=== PATIENT | female | born 1985 | race Caucasian/White ===

== ENCOUNTER 2024-09-09 11:02 | Outpatient (CLI) | payer BC, SELFPAY ==
[2024-09-09 11:45] LABS: Basophils Percent Auto 0.3 % (0.2-1.2); Eosinophils Percent Auto 0.1 % (0-4.4); Hematocrit 43.1 % (37.0-47.0); Hemoglobin 14.4 g/dL (12.0-15.0); Immature Granulocyte Absolute 0.05 K/mm3 (0.00-0.031); Immature Granulocyte Percent A 0.3 % (0-0.5); Lymphocytes Absolute Auto 1.09 K/mm3 (0.9-3.2); Lymphocytes Percent Auto 7.6 % (18.3-44.2); Mean Corpuscular HGB Conc 33.4 g/dl (32-36); Mean Corpuscular Volume 83.7 fl (80-100); Mean Platelet Volume 9.3 fl (7.4-10.4); Monocytes Absolute Auto 0.4 K/mm3 (0.1-0.6); Monocytes Percent Auto 2.7 % (2.6-8.5); Neutrophils Absolute Auto 12.8 K/mm3 (1.3-6.7); Platelet Count Result 309 k/mm3 (150-375); Red Blood Count 5.15 M/mm3 (4.2-5.4); Red Cell Distribution Width 12.1 % (11.5-14.5); White Blood Count 14.3 K/mm3 (4.5-10.0)
[2024-09-09 11:56] LABS: Alanine Aminotransferase 13 U/L (6-35); Albumin Level 4.9 g/dL (3.5-5.1); Alkaline Phosphatase 66 U/L (38-126); Anion Gap 13 mmol/L (4-12); Aspartate Amino Transferase 25 U/L (14-36); Bilirubin,Total 1.1 mg/dL (0.2-1.3); Blood Urea Nitrogen 7 mg/dL (7-17); Carbon Dioxide 23 mmol/L (22-30); Chloride 103 mmol/L (98-107); Estimated Glomerular Filt Rate > 60; Glucose 103 mg/dL (65-110); Potassium 3.1 mmol/L (3.4-5.0); Sodium 139 mmol/L (137-145)
== END 2024-09-09 11:03 | disposition home or self-care (01) ==
LOC: ANHLAB 11:04
PROVIDERS: PCP Family Medicine; Visit Provider Physician Assistant
DX: R10.9 Unspecified abdominal pain (principal); R11.0 Nausea
CPT/HCPCS: 36415; 80053; 85025

== ENCOUNTER 2024-09-09 13:04 | Outpatient (CLI) | payer BC, SELFPAY ==
--- NOTE | ~2024-09-09 | CT_ITS ---
EXAMINATION: CT abdomen pelvis w con DATE: 09/09/2024 13:25 INDICATION: Right lower quadrant abdominal pain, nausea and vomiting. Leukocytosis. TECHNIQUE: Computed tomography (CT) of the abdomen and pelvis was performed with 100 mL Omnipaque-350 intravenous contrast. Automated exposure control and iterative reconstruction technique were employe d. The dose-length product was 817.58 mGy-cm. COMPARISON: None FINDINGS: Lung bases are clear. Heart size normal. No pericardial or pleural effusion. Small sliding-type hiata l hernia. Small region of focal hepatic steatosis along the ligamentum teres. Gallbladder, spleen, pa ncreas, bilateral adrenal glands and right kidney are normal. There is dilation of the fluid-filled a ppendix which measures up to 1.5 cm maximal diameter with thickened edematous wall measuring 3 to 4 m m in thickness. Despite the absence of significant surrounding from trace stranding to study most con sistent with acute appendicitis. Remainder of the bowels are normal. And 6 similar rim-enhancing [place] us luteum cyst in the right ovary. The decompressed bladder, anteverted uterus and left adnexa are un remarkable. Small fat-containing umbilical hernia. Minimal amount of likely reactive or physiologic f ree fluid in the cul-de-sac. No pathologically enlarged abdominal or pelvic lymphadenopathy. Chronic appearing mild likely physiologic anterior wedging at T12. Mild osteitis pubis. IMPRESSION: 1. Dilated appendix with edematous wall thickening suspicious for acute appendicitis. Dr. Hill di scussed these findings with Dr. Keisha Garcia at 1:45 PM. Reviewed, dictated and finalized at location A. IMPRESSION: 1. Dilated appendix with edematous wall thickening suspicious for acute appendi citis. Dr. Hill discussed these findings with Dr. Keisha Garcia at 1:45 PM .
== END 2024-09-09 13:05 | disposition home or self-care (01) ==
PROVIDERS: PCP Family Medicine; Visit Provider Physician Assistant
DX: K38.0 Hyperplasia of appendix (principal); D72.829 Elevated white blood cell count, unspecified
CPT/HCPCS: 36415; 74177; 80053; 85025; Q9967

== ENCOUNTER 2024-09-09 13:50 | Day surgery (SDC) | payer BC, SELFPAY ==
[2024-09-09] VITALS (13 sets, daily range): BP systolic 119–151; BP diastolic 72–99; PULSE 72–118; RESP 12–20; TEMP 36.4–36.7; O2SAT 98–100
--- NOTE | 2024-09-09 14:05 | ED.GENADULT ---
HPI - General Adult General Chief complaint: Abdominal Pain Stated complaint: appy Time Seen by Provider: 09/09/24 13:53 History of Present Illness HPI narrative: 39-year-old female presents emergency department for evaluation for epigastric and right lower quadrant pain. Patient reports the pain started last night as epigastric pain but continued to worsen throughout the evening. Patient did have follow-up today with her primary care physician due to the persistent pain. During her initial examination patient did have some significant right lower quadrant tenderness so an outpatient CT scan was ordered. Outpatient CT scan was concerning for acute appendicitis and patient was referred to the emergency department. At time of evaluation patient is complaining of diffuse abdominal pain and does have some right lower quadrant tenderness. Patient has not had anything to drink since 11:30 today. She denies any prior abdominal surgical history. Related Data Home Medications Medication Instructions Recorded Confirmed peg 400-propylene glycol (PF) 0.4 1 drp EACH EYE DAILY PRN 03/28/24 09/09/24 %-0.3 % eye drops in a dropperette (Systane (PF)) Allergies Allergy/AdvReac Type Severity Reaction Status Date / Time No Known Allergies Allergy Verified 09/09/24 15:50 Review of Systems Review of Systems: All systems reviewed & are unremarkable except as noted in HPI and below PMFSH Past Medical History Medical History Chronic headaches Enlarged thyroid SOBIA (generalized anxiety disorder) Seasonal allergies Surgical History Surgical History No pertinent past surgical history Family History Family History Father Hypertension Grandparent Lung cancer Social History Social History Social History: Smoking status: Never smoker Second hand tobacco smoke exposure: No Alcohol intake: current Alcohol use details: Pt drinks alcohol once a week. 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 HEAD: normocephalic, atraumatic. EYES: PERRLA/EOMI, conjunctivae clear. NOSE: Normal no drainage EARS:TMS clear with good light reflex. THROAT: Pharynx clear, no exudate. NECK: Supple. No adenopathy, no masses. RESPIRATORY: Airway patent, respirations nonlabored. Clear to auscultation bilaterally, no rales, rhonchi, wheezing. CARDIOVASCULAR: Regular rate and rhythm without murmurs rubs or gallops. ABDOMINAL: Epigastric and right lower quadrant tenderness to palpation MUSCULOSKELETAL: Moves all extremities. Strength/ROM intact, No edema, No calf tenderness. NEURO: Alert. Cranial nerves II through XII intact. Good gait. Good coordination SKIN: Warm, dry. Normal Color Course Vital Signs Vital signs: Vital Signs Temperature 97.6 F 09/09/24 13:53 Pulse Rate 110 H 09/09/24 13:53 Respiratory Rate 20 09/09/24 13:53 Blood Pressure 141/99 H 09/09/24 13:53 Pulse Oximetry 99 09/09/24 13:53 Oxygen Delivery Room Air 09/09/24 13:53 Temperature 98.0 F 09/09/24 17:30 Pulse R
[2024-09-09] MEDS: ONDANSETRON INJ 4 MG/2 ML VIAL IV PUSH ×2 (14:24→18:20)
[2024-09-09] MEDS: SODIUM CHLORIDE 0.9% IV 1,000 ML 999 ML IV CONT (14:24)
[2024-09-09] MEDS: HYDROmorphone HCL INJ (*CRX) 1 MG/ML SYR 0.5 MG IV PUSH (14:24)
[2024-09-09 14:26] LABS: BEDSIDEPREGUCG Negative (Negative)
[2024-09-09 14:46] LABS: Add Urine Microscopic? YES; Appearance Urine Clear (Clear); Bacteria Urine None Seen /hpf; Bilirubin Urine Negative (Negative); Blood Urine Negative (Negative); Color Urine Yellow (Yellow); Glucose Urine UA Negative (Negative); Ketones Urine 1+ mg/dL (Negative); Leukocyte Esterase Ur Negative LEU/UL (Negative); Nitrate Urine Negative (Negative); Non Pathogenic Casts 0-2; Protein Urine Trace mg/dL (Negative); RBC Urine 0-2 /hpf (0-2); Specific Grav Ur > 1.045 (1.001-1.035); Squamous Epithelial Cell Urine None Seen /hpf (Few); Urobilinogen Urine 0.2 mg/dL (<2.0); WBC Urine 0-5 /hpf (0-3); pH Urine 6.5 (5.0-9.0)
[2024-09-09 14:58] LABS: Hematocrit 40.4 % (37.0-47.0); Hemoglobin 14.3 g/dL (12.0-15.0); Mean Corpuscular HGB Conc 35.4 g/dl (32-36); Mean Corpuscular Hemoglobin 29.1 pg (26-34); Mean Corpuscular Volume 82.3 fl (80-100); Mean Platelet Volume 9.5 fl (7.4-10.4); Platelet Count Result 316 k/mm3 (150-375); Red Blood Count 4.91 M/mm3 (4.2-5.4); Red Cell Distribution Width 12.1 % (11.5-14.5); White Blood Count 17.4 K/mm3 (4.5-10.0)
[2024-09-09] MEDS: PIPERACILLN/TAZ 3.375GM/NS50ML 3.375 GM/50 ML BAG IVPB (15:06)
[2024-09-09 15:08] LABS: Prothrombin Time 13.7 Seconds (11.1-14.7)
[2024-09-09 15:09] LABS: Partial Thromboplastin Time 32.3 Seconds (22.3-36.8)
[2024-09-09 15:12] LABS: Lactic Acid Reflex 0.9 mmol/L (0.7-2.0)
--- NOTE | 2024-09-09 15:31 | PM.IMHP ---
H&P: HPI History of Present Illness Date/Time: 09/09/24 15:31 Chief Complaint: Abdominal pain Narrative: This is a 39-year-old female who was seen as an outpatient by her PCP today for upper abdominal pain. Her pain started around 8:00 p.m. last night after eating chili. She has a history of GERD and initially thought this was related to indigestion. Through the night, her pain progressed and she was unable to sleep. She had a bowel movement, which did not alleviate any of her pain. She also tried famotidine without improvement. She reports associated nausea and vomiting x2. Her PCP ordered labs, which showed leukocytosis and prompted CT scan of the abdomen and pelvis. CT scan showed a dilated appendix with edematous wall thickening suspicious for acute appendicitis. She was then directed to the ED for evaluation. Review of Systems Review of Systems: All systems reviewed & are unremarkable except as noted in HPI and below PMFSH Past Medical History Medical History (Updated 09/09/24 @ 15:39 by ANTWON Rosario) Chronic headaches Enlarged thyroid SOBIA (generalized anxiety disorder) Seasonal allergies Surgical History Surgical History No pertinent past surgical history Family History Family History Father Hypertension Grandparent Lung cancer Social History Social History Social History: Smoking status: Never smoker Second hand tobacco smoke exposure: No Alcohol intake: current Alcohol use details: Pt drinks alcohol once a week. 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 Gender identity (if verbalized by the patient): Female Sexual Orientation (if Verbalized by the Patient): Straight or Heterosexual Meds Home Medications and Allergies Home Medications Medication Instructions Recorded Confirmed Type azelastine 137 mcg (0.1 %) nasal See Rx Instructions .Route 02/08/24 09/09/24 Rx spray .COMPLEX #90 mL buspirone 5 mg tablet 5 mg PO TID #90 tabs 02/08/24 09/09/24 Rx peg 400-propylene glycol (PF) 0.4 1 drp EACH EYE DAILY PRN 03/28/24 09/09/24 History %-0.3 % eye drops in a dropperette (Systane (PF)) fluticasone propionate 50 See Rx Instructions .Route 07/21/24 09/09/24 Rx mcg/actuation nasal .COMPLEX #48 grams spray,suspension propranolol 20 mg tablet See Rx Instructions .Route 08/25/24 09/09/24 Rx .COMPLEX #180 tabs omeprazole 40 mg capsule,delayed 40 mg PO DAILY 6 weeks #42 caps 09/09/24 09/09/24 Rx release Allergies Allergy/AdvReac Type Severity Reaction Status Date / Time No Known Allergies Allergy Verified 09/09/24 13:58 Vital Signs Vital Signs - 24 hr 09/09/24 13:53 09/09/24 14:25 Temperature 97.6 F Pulse Rate 110 H 105 H Respiratory Rate 20 15 Blood Pressure 141/99 H Pulse Oximetry 99 100 Oxygen Delivery Room Air Exam Const: General: comfortable and no acute distress Nutritional Appearance: average body habitus Orientation/consciousness: patient oriented x3 HENMT: Head: normocephalic and atraumatic Ears: hearing grossly normal bilaterally Mouth: Yes moist mucous membranes Eyes: General: appearance normal, both eyes and all related structures Pupils: Equal, round and reactive pupils present Neck: Neck: normal visual inspection and full ROM Resp: Effort & I
[2024-09-09 15:40] LABS: Band Neutrophils Percent 1 % (0-6); Lymphocytes Absolute Manual 0.69 K/mm3 (1.1-4.5); Monocytes Absolute Manual 0.52 K/mm3 (0.1-0.90); Monocytes Percent Manual 3 % (3-9); Neutrophils Absolute Manual 16.18 K/mm3 (1.7-7.2); Neutrophils Percent Manual 92 % (46-73); Platelet Estimate Adequate (Adequate); Schistocytes None Seen; Total Cells Counted 100
--- NOTE | 2024-09-09 15:57 | WPDANESEPPF ---
Anes - Initial Pre Proc Eval Procedure: Operation Date: 09/09/24 17:00 Proposed Procedures p Laparoscopic Appendectomy - Braxton Pichardo DO Date/Time: 09/09/24 15:57 Surgeon: Braxton Pichardo DO Pre Op Diagnosis: appy Patient Data Age: 39 Gender: F Height: 1.7 m Weight: 91.8 kg Last Vital Signs Temp 36.7 C 09/09/24 15:51 Pulse 103 H 09/09/24 15:51 Resp 18 09/09/24 15:51 BP 151/94 H 09/09/24 15:51 Pulse Ox 99 09/09/24 15:51 O2 Del Method Room Air 09/09/24 15:51 Allergies Allergy/AdvReac Type Severity Reaction Status Date / Time No Known Allergies Allergy Verified 09/09/24 15:50 Home Medications Medication Instructions Recorded Confirmed Type azelastine 137 mcg (0.1 %) nasal See Rx Instructions .Route 02/08/24 09/09/24 Rx spray .COMPLEX #90 mL buspirone 5 mg tablet 5 mg PO TID #90 tabs 02/08/24 09/09/24 Rx peg 400-propylene glycol (PF) 0.4 1 drp EACH EYE DAILY PRN 03/28/24 09/09/24 History %-0.3 % eye drops in a dropperette (Systane (PF)) fluticasone propionate 50 See Rx Instructions .Route 07/21/24 09/09/24 Rx mcg/actuation nasal .COMPLEX #48 grams spray,suspension propranolol 20 mg tablet See Rx Instructions .Route 08/25/24 09/09/24 Rx .COMPLEX #180 tabs omeprazole 40 mg capsule,delayed 40 mg PO DAILY 6 weeks #42 caps 09/09/24 09/09/24 Rx release Laboratory Tests 09/09/24 09/09/24 09/09/24 14:25 14:26 14:52 WBC 17.4 H K/mm3 (4.5-10.0) RBC 4.91 M/mm3 (4.2-5.4) Hgb 14.3 g/dL (12.0-15.0) Hct 40.4 % (37.0-47.0) MCV 82.3 fl (80-100) MCH 29.1 pg (26-34) MCHC 35.4 g/dl (32-36) RDW 12.1 % (11.5-14.5) Plt Count 316 k/mm3 (150-375) MPV 9.5 fl (7.4-10.4) Immature Gran % (Auto) Not Reportable Neut % (Auto) Not Reportable Lymph % (Auto) Not Reportable [place] % (Auto) Not Reportable Eos % (Auto) Not Reportable Baso % (Auto) Not Reportable Lymph # (Auto) Not Reportable [place] # (Auto) Not Reportable Eos # (Auto) Not Reportable Baso # (Auto) Not Reportable Abs Immat Gran (auto) Not Reportable Absolute Neuts (auto) Not Reportable Absolute Nucleated RBC Not Reportable Total Counted 100 Neutrophils % (Manual) 92 H % (46-73) Band Neutrophils % 1 % (0-6) Lymphocytes % (Manual) 4.0 L % (18-44) Monocytes % (Manual) 3 % (3-9) Nucleated RBC % Not Reportable Abs Neuts (Manual) 16.18 H K/mm3 (1.7-7.2) Abs Lymphs (Manual) 0.69 L K/mm3 (1.1-4.5) Abs Monocytes (Manual) 0.52 K/mm3 (0.1-0.90) Platelet Estimate Adequate (Adequate) Schistocytes None seen PT 13.7 Seconds (11.1-14.7) INR 1.0 APTT 32.3 Seconds (22.3-36.8) Sodium Pending Potassium Pending Chloride Pending Carbon Dioxide Pending Anion Gap Pending BUN Pending Creatinine Pending Estim Creat Clear Calc Pending Estimated GFR Pending Glucose Pending Lactic Acid 0.9 mmol/L (0.7-2.0) Calcium Pending Total Bilirubin Pending AST Pending ALT Pending Alkaline Phosphatase Pending Total Protein Pending Albumin Pending Lipase Pending Urine Color Yellow (Yellow) Urine Appearance Clear (Clear) Urine pH 6.5 (5.0-9.0) Ur Specific [place] > 1.045 H (1.001-1.035) Urine Protein Trace mg/dL (Negative) Urine Glucose (UA) Negative mg/dL (Negative) Urine Ketones 1+ H mg/dL (Negative
[2024-09-09 15:59] LABS: Alanine Aminotransferase 13 U/L (6-35); Albumin Level 4.9 g/dL (3.5-5.1); Alkaline Phosphatase 68 U/L (38-126); Anion Gap 14 mmol/L (4-12); Aspartate Amino Transferase 22 U/L (14-36); Bilirubin,Total 1.3 mg/dL (0.2-1.3); Blood Urea Nitrogen 7 mg/dL (7-17); Calcium 9.1 mg/dL (8.4-10.2); Carbon Dioxide 20 mmol/L (22-30); Chloride 104 mmol/L (98-107); Estimated CRCL calculation 148 ml/min; Estimated Glomerular Filt Rate > 60; Glucose 101 mg/dL (65-110); Lipase 41 U/L (23-300); Potassium 3.1 mmol/L (3.4-5.0); Sodium 138 mmol/L (137-145)
[2024-09-09] MEDS: ACETAMINOPHEN 500 MG TABLET 1000 MG PO (16:00)
[2024-09-09] MEDS: KETOROLAC 15 MG/ML VIAL (*BKC) IV PUSH (16:01)
[2024-09-09] MEDS: LACTATED RINGERS 1,000 ML 30 ML IV CONT ×2 (16:18→17:30)
--- NOTE | 2024-09-09 16:28 | WPDHPUPDATE1 ---
History and Physical Update Update Date/Time: 09/09/24 16:28 History and Physical has been reviewed, including an updated exam of the patient. There are NO changes in the patient's condition. Risks, benefits, and alternatives have been discussed and questions answered. Patient agrees to proceed with procedure.
[2024-09-09] MEDS: BUPIVACAINE/EPINEPHRINE 0.5% 50 ML VIAL 30 ML INFILTRATE (17:03)
--- NOTE | 2024-09-09 17:25 | W.PM.PROC2 ---
Procedure Note - Detailed Date of Procedure 09/09/24 Pre-op Diagnosis Acute appendicitis, umbilical hernia Post-op Diagnosis Other (Acute appendicitis, hemorrhagic right ovarian cyst, 1 cm umbilical hernia) Procedure Performed 1. Laparoscopic appendectomy 2. Open 1 cm umbilical hernia repair Surgeon Braxton Pichardo DO Anesthesia General and Local (0.5% bupivacaine with epinephrine) Indications This is a 39-year-old woman who presented with periumbilical pain that started around 8:00 p.m. last night. She had never experienced pain like this in the past. She was seen by her PCP office today and was sent for labs and a CT. She was then sent to the emergency department after the CT results came back. Her CT showed evidence of acute appendicitis. She was also found to have 1 cm umbilical hernia. Discussions were made with the patient about treatment options and decision was made to proceed with laparoscopic appendectomy, possible open. Findings Laparoscopic appendectomy was performed. The patient had a 1 cm umbilical hernia and decision was made to place my initial port through this hernia defect. The appendix appeared dilated and indurated, but there was no evidence of perforation or abscess. The base of the appendix appeared healthy and viable. The appendix was removed and sent to the lab for pathology. When I 1st inspected the abdomen laparoscopically, there did appear to be some blood tinged fluid in the pelvis. Upon further inspection there appeared to be a hemorrhagic cyst in the right ovary. The edge of the cyst was cauterized to help with hemostasis. No other significant abnormalities were seen. Description of Procedure Procedure as well as risks, benefits, and alternatives were explained to the patient. The patient agreed to proceed. Written consent was obtained and placed in chart prior to procedure. The patient was brought back to surgical suite. She was placed supine on operating table. Time-out was done to confirm the patient and procedure. The patient was then intubated by the Anesthesia Department. Her abdomen was prepped and draped in sterile fashion using chlorhexidine prep. A 2 cm curvilinear incision was made just superior to the umbilicus using a 15 blade scalpel. Electrocautery was used for hemostasis and for dissection through the subcutaneous tissue. Hernia defect was identified and the hernia sac and preperitoneal fat was excised using electrocautery. Peritoneum was entered through the hernia defect. A 12 mm trocar was then inserted, and carbon dioxide insufflation was used to create a pneumoperitoneum. The camera was inserted and the abdomen was inspected. Some blood-tinged ascites was noted in the pelvis and along the right colic gutter. The patient was then placed in slight Trendelenburg position and rotated to the left. A 5 mm incision was made in the suprapubic region in midline and a 5 mm trocar was inserted under direct visualization. A 5 mm incision was made in the left lower quadrant and a 5 mm trocar was inserted under direct visualization. The right lower quadrant was carefully inspected. The cecum was identified and then this was traced back to the appendix. The appendix was identified and grasped at the mesoappendix and lifted anteriorly. Careful blunt dissection was carried out at the base of the appendix through the mesoappendix using a [place] grasper. An Endo-PRISCILLA 45 mm blue load stapler was then advanced across the base of the appendix and clamped and fired. A white reload was then clamped across the mesoappendix and fired. This freed up our appendix completely. It was then placed in an EndoCatch bag and removed through the umbilical port. The staple lines were then inspected. Hemostasis appeared adequate and the staple lines appeared secure. The area was then irrigated with sterile saline. The pelvis was then carefully inspected and irrigated with sterile saline as well and the remainder of the ab
[2024-09-09] MEDS: fentaNYL CITRATE INJ (*CRX) 100 MCG/2 ML VIAL 25 MCG IV PUSH ×3 (18:08→18:15)
[2024-09-09] MEDS: diphenhydrAMINE HCl INJ 50 MG/ML VIAL 25 MG IV PUSH (18:27)
[2024-09-09] MEDS: oxyCODONE HCL (*CRX) 5 MG TAB IR PO (19:23)
== END 2024-09-09 20:00 | disposition home or self-care (01) ==
LOC: ANHED 14:19 → ANHSURGERY 14:34
PROVIDERS: Emergency Provider Emergency Medicine; PCP Family Medicine; Visit Provider Surgery
PROC: 0DTJ4ZZ Resection of Appendix, Percutaneous Endoscopic Approach (ICD-10-PCS; CPT 44970; principal; 2024-09-09 17:00)
DX: K35.30 Acute appendicitis with localized peritonitis, without perforation or gangrene (principal); K42.9 Umbilical hernia without obstruction or gangrene; R18.8 Other ascites; N83.201 Unspecified ovarian cyst, right side; F41.9 Anxiety disorder, unspecified; R51.9 Headache, unspecified; E66.9 Obesity, unspecified; Z68.31 Body mass index [BMI] 31.0-31.9, adult; Z80.1 Family history of malignant neoplasm of trachea, bronchus and lung
CPT/HCPCS: 44970; 36415; 80053; 81001; 81025; 83605; 83690; 85025; 85610; 85730; 87040; 88304; 96365; 96375; 99285; A9270; J0330; J1100; J1171; J1200; J1885; J2003; J2250; J2405; J2543; J2704; J3010; J7030; J7120

== ENCOUNTER 2025-10-30 09:24 | Outpatient (CLI) | payer BC, SELFPAY ==
[2025-10-30 09:53] LABS: Hematocrit 42.0 % (37.0-47.0); Hemoglobin 14.3 g/dL (12.0-15.0); Immature Granulocyte Percent A 0.3 % (0-0.5); Lymphocytes Absolute Auto 1.49 K/mm3 (0.9-3.2); Mean Corpuscular HGB Conc 34.0 g/dl (32-36); Mean Corpuscular Hemoglobin 28.7 pg (26-34); Mean Corpuscular Volume 84.2 fl (80-100); Nucleated Red Blood Cells Absolute Auto 0.000 K/mm3 (0.0-0.012); Nucleated Red Blood Cells Perc 0.0 % (0.0-0.2); Platelet Count Result 302 k/mm3 (150-375); Red Blood Count 4.99 M/mm3 (4.2-5.4); White Blood Count 7.1 K/mm3 (4.5-10.0)
[2025-10-30 10:27] LABS: Alanine Aminotransferase 15 U/L (6-35); Albumin Level 4.6 g/dL (3.5-5.1); Alkaline Phosphatase 61 U/L (38-126); Amylase 74 U/L (30-110); Anion Gap 7 mmol/L (4-12); Aspartate Amino Transferase 21 U/L (14-36); Bilirubin,Total 0.8 mg/dL (0.2-1.3); Blood Urea Nitrogen 11 mg/dL (7-17); Calcium 9.2 mg/dL (8.4-10.2); Carbon Dioxide 25 mmol/L (22-30); Chloride 109 mmol/L (98-107); Estimated Glomerular Filt Rate > 60; Glucose 91 mg/dL (65-110); Lipase 53 U/L (23-300); Potassium 4.2 mmol/L (3.4-5.0); Sodium 141 mmol/L (137-145); Total Protein 7.8 g/dL (6.3-8.2)
== END 2025-10-30 09:25 | disposition home or self-care (01) ==
LOC: ANHLAB 09:27
PROVIDERS: PCP Family Medicine; Visit Provider Physician Assistant
DX: R10.11 Right upper quadrant pain (principal); R10.13 Epigastric pain
CPT/HCPCS: 36415; 80053; 82150; 83690; 85025

== ENCOUNTER 2025-11-03 10:28 | Outpatient (CLI) | payer BC, SELFPAY ==
--- NOTE | ~2025-11-03 | US_ITS ---
Examination: US abdomen complete Clinical History: R10.11 - Right upper quadrant pain . Comparison: CT abdomen and pelvis 09/09/2024 Technique: Complete abdominal sonography Findings: Liver: Enlarged. Normal echotexture. No intrahepatic biliary ductal dilatation. Normal hepatopedal flow main portal vein. Common duct: Normal caliber, 4 mm. Gallbladder: No stones. No wall thickening. No pericholecystic fluid. Spleen: Enlarged. Pancreas: Unremarkable. Kidneys: Unremarkable. Aorta: No aneurysmal dilatation. Retrohepatic IVC: Unremarkable. IMPRESSION: 1. No acute findings. 2. Hepatomegaly. 3. Splenomegaly. Reviewed, dictated and finalized at location R. 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
== END 2025-11-03 10:29 | disposition home or self-care (01) ==
LOC: MICIMG 10:28
PROVIDERS: PCP Family Medicine; Visit Provider Physician Assistant
DX: R16.2 Hepatomegaly with splenomegaly, not elsewhere classified (principal)
CPT/HCPCS: 76700

== ENCOUNTER 2025-11-06 07:59 | Outpatient (CLI) | payer BC, SELFPAY ==
--- NOTE | ~2025-11-06 | CT_ITS ---
EXAM/PROCEDURE: CT abdomen pelvis w con HISTORY: R16.0 - Hepatomegaly, not elsewhere classified COMPARISON: September 09, 2024 TECHNIQUE: IV contrast enhanced CT of abdomen and pelvis FINDINGS: The bowel gas pattern is nonobstructive moderate amount of stool extends to the cecum. With no free air or pneumatosis seen. Trace amount of free fluid in the lower pelvis similar to the previous exam. Anteflex uterus with cystic appearing changes in both adnexal regions also similar to the previous exam. The appendix is been removed. Gallbladder adrenal glands pancreas and aorta appear stable and within normal limits. Mild fatty infiltrative changes of the liver. Borderline hepatomegaly. Maximum cephalocaudal dimension of the liver is approximately 18.6 cm. The spleen also is slightly enlarged in appearance and measures 12.8 x 8.5 x 7.4 cm. No bulky mesenteric or retroperitoneal lymphadenopathy or masses. Urinary bladder unremarkable. No hydroureteronephrosis. Lung bases clear and heart size normal. The bones appear intact. IMPRESSION: 1. Borderline hepatomegaly and mild splenomegaly. Mild fatty liver changes. 2. Patient status post appendectomy. 3. Prominent cystic changes in the adnexal regions. These areas could be better evaluated with pelvic sonography as clinically appropriate. Reviewed, dictated and finalized at location A. 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
[2025-11-06 12:59] LABS: Iron 126 ug/dL (37-170)
[2025-11-06 13:09] LABS: Percent Iron Saturation 37 % (20-50)
[2025-11-06 13:43] LABS: Ferritin 20.80 ng/mL (6.24-137)
== END 2025-11-06 08:00 | disposition home or self-care (01) ==
PROVIDERS: PCP Family Medicine; Visit Provider Physician Assistant
DX: R16.0 Hepatomegaly, not elsewhere classified (principal); R16.1 Splenomegaly, not elsewhere classified; K76.0 Fatty (change of) liver, not elsewhere classified
CPT/HCPCS: 36415; 74177; 82728; 83540; 83550; Q9967

== ENCOUNTER 2025-11-23 09:18 | Outpatient (CLI) | payer BC, SELFPAY ==
--- NOTE | ~2025-11-23 | NM_ITS ---
EXAMINATION: NM_HEPATWP_NM DATE: 11/23/2025 12:19 INDICATION: Right upper quadrant abdominal pain. COMPARISON: None. TECHNIQUE: 5.1 mCi Tc-99m mebrofenin (Choletec) was administered intravenously. Scintigraphic images of the abdomen were obtained for one hour. 1.8 mcg sincalide (Kinevac) was administered by slow intravenous infusion, and imaging was continued for 30 minutes. Gallbladder ejection fraction was calculated by the technologist. FINDINGS: There is normal clearance of radiotracer from the blood pool. There is homogeneous tracer uptake by the liver. Activity progresses to the gallbladder and bowel. The gallbladder ejection fraction (GBEF) is 47% (normal 10-90%, but most patient with gallbladder dysfunction have GBEF < 35% which does overlap with the normal range). IMPRESSION: 1. Normal hepatobiliary scan. Reviewed, dictated and finalized at location A. [facility]
--- OUTSIDE RECORDS SUMMARY | 2025-11-23 09:35 | XMS_ITS | Clinical Summary ---
Author Organization [facility] Address [address] [place] [address] Care Team Providers Care Customer Support Analyst Name Role Phone Mak Donald MD Primary Care Provider [phone] Source Comments [facility],non-owned Affiliates and Associated Physician Practices is amultiple site organization consisting of ambulatory clinics and hospital sitesin [place], [place], [place] and [place]. This disclosure is being madepursuant to the Care Everywhere program and may not contain all information available regarding this patient. Last updated 18.[facility] Allergies No known active allergies Medications * Be aware that medications may not be up to date on this document. Alwaysverify current medications with the patient. Loperamide (IMODIUM) 2 MG tablet Take 1 tablet by mouth as directed at onset then 1 every hour as needed. 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 Gender Identity Not on file Sexual Orientation Not on file Last Filed Vital Signs Vital Sign Reading Time Taken Comments Blood Pressure 108/64 12/20/2019 3:23 PM DEBONING TEAM LEADER Pulse 95 12/20/2019 3:23 PM DEBONING TEAM LEADER Temperature 36.9 C (98.5 F) 12/20/2019 3:23 PM DEBONING TEAM LEADER Respiratory Rate 20 12/20/2019 3:23 PM DEBONING TEAM LEADER Oxygen Saturation 98% 12/20/2019 3:23 PM DEBONING TEAM LEADER Inhaled Oxygen Concentration - - Weight 88.5 kg (195 lb) 12/20/2019 3:23 PM DEBONING TEAM LEADER Height 172.7 cm (5' 8) 12/20/2019 3:23 PM DEBONING TEAM LEADER Body Mass Index 29.65 12/20/2019 3:23 PM DEBONING TEAM LEADER Plan of Treatment Health Maintenance Due Date Last Done Comments HIV SCREENING 2001 HEPATITIS C SCREENING 05/20/2004 DTAP/TDAP/TD VACCINES (1 - Tdap) 2005 HEPATITIS B VACCINE (1 of 3 - 19+ 3-dose series) 2005 PAP SMEAR 2007 HPV VACCINE (1 - 3-dose SCDM series) 2013 DEPRESSION SCREENING 11/26/2024 COVID-19 VACCINE (1 - 2024-2 6 season) 2025 INFLUENZA VACCINE (#1) 2025 ZOSTER VACCINE (1 of 2) 2036 HIB VACCINE Aged Out No longer eligi ble based on patient's age to complete this topic MENINGOCOCCAL (Group B) VACC INE SHARED DECISION-MAKING Aged Out No longer eligibl e based on patient's age to complete this topic MENINGOCOCCAL GROUPS A/C/Y/W VACCINE Aged Out No longer eligible b ased on patient's age to complete this topic PNEUMOCOCCAL VACCINE Aged Out No long er eligible based on patient's age to complete this topic Insurance PUSHPA Care Teams Customer Support Analyst Relationship Specialty Start Date End Date Mak Donald MD [address] [place] [id number] PCP - General Internal Medicine 11/20/16
--- OUTSIDE RECORDS SUMMARY | 2025-11-23 09:35 | XMS_ITS | Encounter Summary ---
Author Organization [facility] Address [address] [place] [address] Care Team Providers Care Bridge Mechanic Name Role Phone Mak Donald MD Primary Care Provider [phone] Encounter Details Date Type Department Care Team (Late [facility]) Description 06/02/2025 Lab Requisition [facility] - DermPath Lab [address] [facility], [place] [phone] Marta Grijalva MD [address] [facility] 3 [place] [address] Social History Tobacco Use Types Packs/Day Years Used Date Smoking Tobacco: Never Smokeless Tobacco: Never Alcohol Use Standard Drinks/Week Comments Yes 0 (1 standard drink = 0.6 oz pur e alcohol) socially Comments No Sex and Gender Information Value Date Recorded Sex Assigned at Not on file 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 Gender Identity Not on file Sexual Orientation Not on file documented as of this encounter Plan of Treatment Not on file documented as of this encounter Procedures Procedure Name Priority Date/Time Associated Diagnosis Comments DERMATOPATHOLOGY Routine 06/02/2025 1:14 PM CDT documented in this encounter Results * DERMATOPATHOLOGY (06/02/2025 1:14 PM CDT) Case Report Dermatopathology Report Case: [id number] Authorizing Provider: Marta Grijalva MD Collected: 06/02/2025 01:14 PM Ordering Location: [facility] - Received: 06/03/2025 07:48 AM DermPath Lab Pathologist: Della Campos MD Specimen: Skin, right superior eyelid 4:32 PM CDT DERMATOPATHOLOGY LABORATORY Final Diagnosis Specimen A. 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 The specimen consists of a shave biopsy measuring 4x4x2 mm. Jar 0. 4:32 PM CDT DERMATOPATHOLOGY LABORATORY Microscopic Description Specimen A. SKIN, right superior eyelid: There are nests of cytologically bland melanocytes within the dermis that mature with depth. 4:32 PM CDT DERMATOPATHOLOGY LABORATORY Disclaimer An external and internal positive and negative controls are appropriate for the histochemical, immunohistochemical and immunofluorescence stain(s) in this case (if any), except where stated explicitly. The performance characteristics of the stain(s) cited in this report were developed and its performance characteristic determined by the Dermatopathology Laboratory at [facility], directed by Dr. Arturo Khan. These tests need not be, and therefore are not, approved by the [place] Food and Drug Administration. The tests are used for clinical purposes. Billing Codes Specimen Charges Stain Charges 60051 1 4:32 PM CDT DERMATOPATHOLOGY LABORATORY Embedded Images 4:32 PM CDT DERMATOPATHOLOGY LABORATORY Pathology/Cytolo gy TISSUE SPECIMEN FROM SKIN / Unknown 06/02/2025 1:14 PM CDT 06/03/2025 7:48 AM CDT us Marta Grijalva MD LAB - PATHOLOGY/CYTOLOGY ORD ERABLES Final Result DERMATOPATHOLOGY LABORATORY [facility] - Department of Dermatology [address], 3rd Floor [place], [place] [address] [phone] documented in this encounter Visit Diagnoses Not on filedocumented in this encounter Care Teams Bridge Mechanic Relationship Specialty Start Date End Date Mak Donald MD [address] [place] [address], [place] [address] PCP - General Internal Medicine 11/20/16 documented as of this encounter
--- OUTSIDE RECORDS SUMMARY | 2025-11-23 09:35 | XMS_ITS | Encounter Summary ---
Author Organization [facility] Address [address] [place] [address] Care Team Providers Care Rehab Rn Name Role Phone Mak Donald MD Primary Care Provider Encounter Details Date Type Department Care Team (Late Contact Info) Description 11/16/[address] [facility] Pediatrics - Medical [place] [address] [address] Pedro Setven MD NO ADDRESS ON FILE Social History Tobacco Use Types Packs/Day Years Used Date Smoking Tobacco: Never Assessed Comments Unknown Sex and Gender Information Value Date Recorded Sex Assigned at Not on file Legal Sex Female 3:48 AM HYDROSTATIC TESTER Gender Identity Not on file Sexual Orientation Not on file documented as of this encounter Plan of Treatment Upcoming Encounters Date Type Department Care Team (Late Contact Info) Description 12/10/2025 9:45 AM HYDROSTATIC TESTER Appointment [facility] Maternal and Ground Floor [address] [place] [address] Gertrudis Bentley MD [address] [place] [address] documented as of this encounter Visit Diagnoses Not on filedocumented in this encounter Care Teams Rehab Rn Relationship Specialty Start Date End Date Mak Donald MD [address] [place] [address] PCP - General 10/28/08 08/31/19 documented as of this encounter
--- OUTSIDE RECORDS SUMMARY | 2025-11-23 09:35 | XMS_ITS | Encounter Summary ---
Author Organization [facility] Address [address] [place] [address] Care Team Providers Care Rice Farmworker Name Role Phone Mak Donald MD Primary Care Provider [phone] Encounter Details Date Type Department Care Team (Late [facility]) Description 07/13/2025 Lab Requisition [facility] - DermPath Lab [address] 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 PEARL FISHERMAN Gender Identity Not on file Sexual Orientation Not on file documented as of this encounter Plan of Treatment Not on file documented as of this encounter Procedures Procedure Name Priority Date/Time Associated Diagnosis Comments DERMATOPATHOLOGY Routine 07/13/2025 8:49 AM CDT documented in this encounter Results * DERMATOPATHOLOGY (07/13/2025 8:49 AM CDT) Case Report Dermatopathology Report Case: [id number] Authorizing Provider: Marta Grijalva MD Collected: 07/13/2025 08:49 AM Ordering Location: [facility] - Received: 07/13/2025 02:22 PM DermPath Lab Pathologist: Cindy Hemphill MD Specimen: Skin, right thigh 11:08 AM CDT DERMATOPATHOLOGY LABORATORY Final Diagnosis Specimen A. 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 The specimen consists of a shave biopsy measuring 9x7x3 mm. Jar 0. 11:08 AM CDT DERMATOPATHOLOGY LABORATORY Microscopic Description Specimen A. SKIN, right thigh: There is epidermal hyperplasia. Within the dermis, there is a dense proliferation of spindled cells in haphazard array among coarse collagen bundles. Factor XIIIa is weakly highlights the stroma. SOX-10 is negative in the proliferation. CD 34 is also negative throughout the proliferation. Desmin demonstrates moderate positivity in the proliferation. Smoth muscle actin strongly highlights the lesion. ETS-related gene stain (ERG) is highlights the dermal blood vessels but is not significantly positive in the spindled cells. Additional deeper sections were obtained and reviewed. COMMENT: The histopathologic differential diagnosis includes a cellular dermatofibroma with myofibroblastic differentiation, which is favored given the architecture of the lesion. The differential also includes a scar with myogenic differentiation, leiomyoma, and dermal smooth muscle tumor. The lesion is present at the base of the specimen; therefore, conservative re-excision is recommended for further diagnosis and removal. This case was also reviewed by Dr. Taylor Campos who agrees with the diagnosis. 11:08 AM CDT DERMATOPATHOLOGY LABORATORY Disclaimer An external and internal positive and negative controls are appropriate for the histochemical, immunohistochemical and immunofluorescence stain(s) in this case (if any), except where stated explicitly. The performance characteristics of the stain(s) cited in this report were developed and its performance characteristic determined by the Dermatopathology Laboratory at [facility], directed by Dr. Arturo Khan. These tests need not be, and therefore are not, approved by the [place] Food and Drug Administration. The tests are used for clinical purposes. Billing Codes Specimen Charges Stain Charges 30129 1 60296 19694 03704 22920 84128 20503 1 1 1 1 1 1 5 11:08 AM CDT DERMATOPATHOLOGY LABORATORY Embedded Images 5 11:08 AM CDT DERMATOPATHOLOGY LABORATORY Pathology/Cytolo gy TISSUE SPECIMEN FROM SKIN / Unknown 07/13/2025 8:49 AM CDT 07/13/2025 2:22 PM CDT Marta Grijalva MD LAB - PATHOLOGY/CYTOLOGY ORD ERABLES Final Result DERMATOPATHOLOGY LABORATORY [facility] - Department of Dermatology [facility] [address] [place] [address], [address] [phone] documented in this encounter Visit Diagnoses Not on filedocumented in this encounter Care Teams Rice Farmworker Relationship Specialty Start Date End Date Mak Donald MD [address] [facility] [facility] [address] [address] PCP - General Internal Medicine 11/20/16 documented as of this encounter
--- OUTSIDE RECORDS SUMMARY | 2025-11-23 09:35 | XMS_ITS | Encounter Summary ---
Author Organization [facility] Address [address] [place] [address] Care Team Providers Care Marine Scientist Name Role Phone Mak Donald MD Primary Care Provider [phone] Encounter Details Date Type Department Care Team (Late st Contact [facility]) Description 08/20/2025 Lab Requisition [facility] - DermPath Lab [address] [facility], [place] [phone] Marta Grijalva MD [address] [facility] 3 [place] [address] Other benign neoplasm of skin of right lower limb, including hip; Other specified health status; Other disturbances of skin sensation Social History Tobacco Use Types Packs/Day Years Used Date Smoking Tobacco: Never Smokeless Tobacco: Never Alcohol Use Standard Drinks/Week Comments Yes 0 (1 standard drink = 0.6 oz pur e alcohol) socially Comments No Sex and Gender Information Value Date Recorded Sex Assigned at Not on file Legal Sex Female 9:20 AM SAP SD ANALYST Gender Identity Not on file Sexual Orientation Not on file documented as of this encounter Plan of Treatment Not on file documented as of this encounter Procedures Procedure Name Priority Date/Time Associated Diagnosis Comments DERMATOPATHOLOGY Routine 08/20/2025 9:00 AM CDT Other benign neoplasm of skin of right lower limb, including hip Other specified health status Other disturbances of skin sensation documented in this encounter Results * DERMATOPATHOLOGY (08/20/2025 9:00 AM CDT) Case Report Dermatopathology Report Case: [id number] Authorizing Provider: Marta Grijalva MD Collected: 08/20/2025 09:00 AM Ordering Location: [facility] - Received: 08/21/2025 07:51 AM DermPath Lab Pathologist: Ally Bonilla MD Specimen: Skin, right thigh 2:58 PM CDT DERMATOPATHOLOGY LABORATORY Final Diagnosis Specimen A. SKIN, right thigh: DERMAL SCAR - RESIDUAL TUMOR IS NOT IDENTIFIED (L90.5) 2:58 PM CDT DERMATOPATHOLOGY LABORATORY at 1458 CDT Clinical History Dermatofibroma 2:58 PM CDT DERMATOPATHOLOGY LABORATORY Gross Description Specimen A: Received is one formalin filled container labeled with the patient's name and designated right thigh.The specimen consists of an ellipse measuring 59a44c8 mm and is oriented with the notch at the 12 o'clock position not labeled on the requisition. The 12 to 6 o'clock margin is inked green. The 6 o'clock to 12 o'clock margin is inked red. The 12 o'clock tip is submitted in cassette 1. The 6 o'clock tip is submitted in cassette 2. The remainder of the ellipse is serially sectioned and submitted in cassettes 3-4. Jar 0. 2:58 PM CDT DERMATOPATHOLOGY LABORATORY Microscopic Description Specimen A. SKIN, right thigh: There are fibroblasts and collagen bundles oriented parallel to the skin surface. There are elongated blood vessels, some of which are oriented perpendicular to the skin surface. No residual tumor is identified. 2:58 PM CDT DERMATOPATHOLOGY LABORATORY Disclaimer An external and internal positive and negative controls are appropriate for the histochemical, immunohistochemical and immunofluorescence stain(s) in this case (if any), except where stated explicitly. The performance characteristics of the stain(s) cited in this report were developed and its performance characteristic determined by the Dermatopathology Laboratory at [facility], directed by Dr. Arturo Khan. These tests need not be, and therefore are not, approved by the [place] Food and Drug Administration. The tests are used for clinical purposes. Billing Codes Specimen Charges Stain Charges 70763 1 5 2:58 PM CDT DERMATOPATHOLOGY LABORATORY Embedded Images 5 2:58 PM CDT DERMATOPATHOLOGY LABORATORY Pathology/Cytolo gy TISSUE SPECIMEN FROM SKIN / Unknown 08/20/2025 9:00 AM CDT 08/21/2025 7:51 AM CDT Marta Grijalva MD LAB - PATHOLOGY/CYTOLOGY ORD ERABLES Final Result DERMATOPATHOLOGY LABORATORY [facility] - Department of Dermatology [facility] Medicine [address] [place] [address], [address] [phone] documented in this encounter Visit Diagnoses Diagnosis Other benign neoplasm of skin of right lower limb, including hip Other specified health status Other disturbances of skin sensation documented in this encounter Care Teams Marine Scientist Relationship Specialty Start Date End Date Mak Donald MD [address] [place] [address] [address] [place] [address] PCP - General Internal Medicine 11/20/16 documented as of this encounter
--- OUTSIDE RECORDS SUMMARY | 2025-11-23 09:36 | XMS_ITS | Encounter Summary ---
Author Organization [facility] Address [address] [place] [address] Care Team Providers Care Restaurant Crew Member Name Role Phone Mak Donald MD Primary Care Provider [phone] Encounter Details Date Type Department Care Team (Late Contact Info) Description 04/25/2000 Outpatient Historical [facility] Pediatrics - Medical [place] [address] [address] Pedro Steven MD NO ADDRESS ON FILE Social History Tobacco Use Types Packs/Day Years Used Date Smoking Tobacco: Never Assessed Comments Unknown Sex and Gender Information Value Date Recorded Sex Assigned at Not on file Legal Sex Female 3:48 AM STAFF TRAINING AND DEVELOPMENT MANAGER Gender Identity Not on file Sexual Orientation Not on file documented as of this encounter Plan of Treatment Upcoming Encounters Date Type Department Care Team (Late Contact Info) Description 12/10/2025 9:45 AM STAFF TRAINING AND DEVELOPMENT MANAGER Appointment [facility] Maternal and Ground Floor [address] [address] [place] [address] Gertrudis Bentley MD [address] [place] [address] documented as of this encounter Visit Diagnoses Not on filedocumented in this encounter Care Teams Restaurant Crew Member Relationship Specialty Start Date End Date Mak Donald MD [address] [place] [address] PCP - General 10/28/08 08/31/19 documented as of this encounter
--- OUTSIDE RECORDS SUMMARY | 2025-11-23 09:36 | XMS_ITS | Clinical Summary ---
Author Organization [facility] Address [address] [place] [address] Phone Care Team Providers Care Wet Process Assistant Head Miller Name Role Phone Unavailable Primary Care Provider Unavailabl e Allergies No known active allergies Medications loratadine-pseu doephedrine (CLARITIN-D) 10-240 mg Extended Release 24 hour tablet Take 1 Tablet by mouth daily. Active fluticasone propionate (FLONASE) 50 mcg/spray [place], Suspension nasal inhaler Administer 1 [place] in each nostril daily. 4 Active busPIRone (BUSPAR) 5 mg tablet Take 5 mg by mouth 3 times daily. Active nystatin (MYCOSTATIN) 100,000 unit/gram Cream Apply to affected area 2 times daily. 15 Gram 5 Active tranexamic acid (LYSTEDA) 650 mg Tablet tablet Take 2 Tablets (1,300 mg) by mouth 3 times daily. 90 Tablet 5 Active fluconazole (DIFLUCAN) 150 mg tablet Take 1 Tablet (150 mg) by mouth every 7 days. 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 02/27/2023 Placenta previa antepartum 10/24/2022 Gastroesophageal reflux disease without esophagi tis 12/07/2020 Plantar wart 10/19/2020 Rh negative state in antepartum period 0 Resolved Problems Problem Noted Date Diagnosed Date Resolved Date Normal labor 01/27/2021 01/27/2021 (spontaneous vaginal delivery) 01/27/2021 10/24/2022 Routine general medical exam ination at a health care facility 11/01/2008 10/24/2022 Acne 10/30/2008 10/24/2022 Elevated BP without diagnosis of hypertension 10/24/2022 Encounters Date Type Department Care Team Description 11/17/2025 External Device Data STL ABSTRACTION Provider, Abstract 11/13/2025 1:15 PM MMD UNIT TEACHER Office Visit [facility] VICE PRESIDENT REGULATORY - Medical [place] [address] [facility] [address] [address] Gertrudis Bentley MD Ovarian cyst, bilateral (Primary Dx) 11/09/2025 Telephone [facility] Women's Health Clinical Support [address] [place] [address] Karime Maldonado RN Needs Appointment 10/13/2025 External Device Data STL ABSTRACTION Provider, Abstract 09/23/2025 External Device Data STL ABSTRACTION Provider, Abstract 09/23/2025 External Device Data STL ABSTRACTION Provider, Abstract 09/07/2025 Results Follow-Up [facility] VICE PRESIDENT REGULATORY - [address] [place] [address] Ally More NP CERV/VAG CYTO AGE BASED SCREEN PAP, CBC WITH DIFFERENTIAL, TSH REFLEXIVE, Additional followed-up results: 3 08/28/2025 9:30 AM CDT Office Visit [facility] VICE PRESIDENT REGULATORY - Medical [place] [address] [facility] [address] [address] Gertrudis Bentley MD Well woman exam with routine gynecological exam (Primary Dx); Screening for cervical cancer; Screening for human papillomavirus (HPV); Need for influenza vaccination; Menorrhagia with regular cycle; Fatigue, unspecified type; Recurrent vaginitis; Elevated blood pressure reading without diagnosis of hypertension from Last 3 Months Immunizations Immunization Administration Dates Next Due (ADACEL/BOOSTRIX)(10 YR UP) TDAP VACCINE, 0.5ML, IM 12/18/2022,11/12/2020 (INFANRIX)(6 WKS-6 YRS) DIPT HERIA, TETANUS TOXOIDS, AND ACCELLULAR PERTUSSIS VACCINE (DTAP), 0.5 ML IM 05/02/1991,01/27/1988,1986,09/30,1986 (M-M-R II/PRIORIX)(12 MO UP) MEASLES, MUMPS AND RUBELLA VIRUS VACCINE, 0.5 ML IM/SUBCUT 05/02/1991,08/25/1987 (TDVAX)(7 YRS UP) TETANUS AN D DIPHTHERIA TOXOIDS, ADSORBED (2 LF OF TETANUS TOXOID AND 2 LF OF DIPHTHERIA TOXOID), 0.5ML (PF), IM 07/13/1999 Hepatitis B Vaccine 03/03/1997,09/26/1996,1995 INFLUENZA VACCINE QUADRIVALE NT 6 MOS UP PF IM 09/20/2020 INFLUENZA VACCINE TRIVALENT SPLIT VIRUS, (6 MOS UP), 0.5ML (PF), IM 08/28/2025,10/31/2024 Meningococcal ACWY Vaccine, Unspecified Formulation 07/12/2004 Poliovirus Vaccine Live Oral 05/02/1991, 01/27/1988,1986,07/29 Skin Test TB 07/10/1994, 1,06/15/1989,06/02,02/22/1987 Family History Medical History Relation Name Comments Healthy Father Healthy Mother Joan Simental Other Mother Joan Simental Miscarriag e during first Healthy Sister Sarah Marr Other Sister Sarah Marr Miscarr iage during first Breast Cancer Neg Hx Colon Cancer Neg Hx Ovarian Cancer Neg Hx Relation Name Status Comments Daughter Alive Father Alive 50 yrs healthy Maternal Grandfather Maternal Grandmother Mother Joan Simental Alive 50 yrs hea lthy Paternal Grandfather Paternal Grandmother Sister Sarah Marr Alive 19 yrs healthy Social History Tobacco Use Types Packs/Day Years Used Date Smoking Tobacco: Never Smokeless Tobacco: Never Tobacco Cessation:Counseling Given: Not Answered Alcohol Use Standard Drinks/Week Comments Not Currently 2 (1 standard drink = 0.6 oz pur e alcohol) 2 per month Feeling Safe Answer Date Recorded Are you in a relationship wi th someone who hurts you emotionally and/or physically? 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 Not on file Not on file Last Filed Vital Signs Vital Sign Reading Time Taken Comments Blood Pressure 149/80 11/13/2025 1:19 PM MMD UNIT TEACHER Pulse 78 11/13/2025 1:19 PM MMD UNIT TEACHER Temperature 35.8 C (96.5 F) 11/13/2025 1:19 PM MMD UNIT TEACHER Respiratory Rate 16 03/01/2023 7:50 AM CDT Oxygen Saturation 98% 11/13/2025 1:19 PM MMD UNIT TEACHER Inhaled Oxygen Concentration - - Weight 90.7 kg (200 lb) 11/13/2025 1:19 PM MMD UNIT TEACHER Height 170.2 cm (5' 7) 11/13/2025 1:19 PM MMD UNIT TEACHER Body Mass Index 31.32 11/13/2025 1:19 PM MMD UNIT TEACHER Plan of Treatment Upcoming Encounters Date Type Department Care Team (Late st Contact Info) Description 12/10/2025 9:45 AM MMD UNIT TEACHER Appointment [facility] Maternal and Ground Floor S [facility] [address] [place] [address] Gertrudis Bentley MD [address] [facility] [address] [place] [address] Health Maintenance Due Date Last Done Comments Pre-Diabetes and Diabetes Screening 10/31/2027 10/31/2024 PAP SMEAR 08/28/2028 08/28/2025, 07/28, 01/14/2019, Additional history exists CERVICAL CANCER SCREENING 08/28/2030 HPV/Cotest (21-29) 08/28/2030 08/28/2025, 0 08/24/2021, 01/14/2019 HPV/Cotest (30-65) 08/28/2030 08/28/2025, 0 08/24/2021, 01/14/2019 DTAP/TDAP/TD VACCINES (8 - T d or Tdap) 12/18/2032 12/18/2022, 11/12/2020, 07/13/1999, Additional history exists HEPATITIS B VACCINES Completed 03/03/1997, 09/26/1996, 07/21/1996 INFLUENZA VACCINE Completed 08/28/2025, , 09/20/2020 HPV VACCINES (No Doses Required) Completed Procedures Procedure Name Priority Date/Time Associated Diagnosis Comments COMPREHENSIVE METABOLIC PANEL Routine 09/08/2025 1:54 PM CDT Menorrhagia with regular cycle Fatigue, unspecified type PROLACTIN Routine 09/08/2025 1:54 PM CDT Menorrhagia with regular cycle Fatigue, unspecified type VITAMIN D 25 HYDROXY Routine 09/08/2025 1:54 PM CDT Menorrhagia with regular cycle Fatigue, unspecified type TSH REFLEXIVE Routine 09/08/2025 1:54 PM CDT Menorrhagia with regular cycle Fatigue, unspecified type CBC WITH DIFFERENTIAL Routine 09/08/2025 1:54 PM CDT Menorrhagia with regular cycle Fatigue, unspecified type CERV/VAG CYTO AGE BASED SCREEN PAP Routine 08/28/2025 1:08 PM CDT Well woman exam with routine gynecological exam Screening for cervical cancer Screening for human papillomavirus (HPV) HEMOGLOBIN A1C Routine 10/31/2024 2:41 PM MMD UNIT TEACHER from Last 3 Months or Most Recently Relevant to Health Maintenance Results * TSH REFLEXIVE (09/08/2025 1:54 PM CDT) TSH 1.99 mIU/L [facility] Comment: Reference Range > or = 20 Years 0.40-4.50 Ranges First trimester 0.26-2.66 Second trimester 0.55-2.73 Third trimester 0.43-2.91 Test Performed at: [facility] [address] [place] [address] Junior Ewing MD Blood 09/08/2025 1:54 PM CDT 09/08/2025 1:55 PM CDT us Gertrudis Bentley MD CHEMISTRY ORDERABLES Fi nal Result [facility] [phone] [facility] [address] [facility] [place] [address] * CBC WITH DIFFERENTIAL (09/08/2025 1:54 PM CDT) WBC 9.3 3.8 - 10.8 Thousand/u L [facility] RBC 4.71 3.80 - 5.10 Million/uL [facility] HEMOGLOBIN 13.6 11.7 - 15.5 g/dL [facility] HEMATOCRIT 42.0 35.0 - 45.0 % [facility] MCV 89.2 80.0 - 100.0 fL [facility] MCH 28.9 27.0 - 33.0 pg [facility] MCHC 32.4 32.0 - 36.0 g/dL [facility] Comment: For adults, a slight decrease in the calculated MCHC value (in the range of 30 to 32 g/dL) is most likely not clinically significant; however, it should be interpreted with caution in correlation with other red cell parameters and the patient's clinical condition. RDW 12.3 11.0 - 15.0 % [facility] PLATELETS 343 140 - 400 Thousand/u L [facility] MPV 9.5 7.5 - 12.5 fL [facility] NEUTROPHIL ABSOLUTE 7,087 1,500 - 7,800 cells/uL [facility] LYMPHOCYTE ABSOLUTE 1,711 850 - 3,900 cells/uL [facility] MONOCYTE ABSOLUTE 363 200 - 950 cells/uL [facility] EOSINOPHIL ABSOLUTE 93 15 - 500 cells/uL [facility] BASOPHILS ABSOLUTE 47 0 - 200 cells/uL [facility] NEUTROPHIL 76.2 % [facility] LYMPHOCYTES 18.4 % [facility] MONOCYTE 3.9 % [facility] EOSINOPHILS 1.0 % [facility] BASOPHILS 0.5 % [facility] Comment: Test Performed at: [facility] [address] Junior Ewing MD Blood 09/08/2025 1:54 PM CDT 09/08/2025 1:55 PM CDT Gertrudis Bentley MD HEMATOLOGY ORDERABLES F inal Result [facility] [phone] [address] * (ABNORMAL) VITAMIN D 25 HYDROXY (09/08/2025 1:54 PM CDT) [facility] VITAMIN D, 25 OH, TOTAL 27(L) 30 - 100 ng/mL [facility] Comment: Vitamin D Status 25-OH Vitamin D: Deficiency: <20 ng/mL Insufficiency: 20 - 29 ng/mL Optimal: > or = 30 ng/mL For 25-OH Vitamin D testing on patients on D2-supplementation and patients for whom quantitation of D2 and D3 fractions is required, the [facility] 25-OH VIT D, (D2,D3), LC/MS/MS is recommended: order code 90875 (patients >2yrs). See Note 1 Note 1 For additional information, please refer to http://education.Power Assure/faq/JDC687 (This link is being provided for informational/ educational purposes only.) FASTING:NO FASTING: NO Test Performed at: [facility] [address] Junior Ewing MD Blood 09/08/2025 1:54 PM CDT 09/08/2025 1:55 PM CDT Gertrudis Bentley MD CHEMISTRY ORDERABLES Fi nal Result Performing Organization Address [facility] de Phone Number [facility] [phone] [facility] [address] [place] [address] * PROLACTIN (09/08/2025 1:54 PM CDT) [facility] PROLACTIN 6.7 ng/mL [facility] Comment: Reference Range Females Non- 3.0-30.0 10.0-209.0 Postmenopausal 2.0-20.0 Test Performed at: [facility] [address] [place] [address] Junior Ewing MD Blood 09/08/2025 1:54 PM CDT 09/08/2025 1:55 PM CDT us Gertrudis Bentley MD CHEMISTRY ORDERABLES Fi nal Result Performing Organization Address [facility] de Phone Number [facility] [phone] [facility] [address] [place] [address] * COMPREHENSIVE METABOLIC PANEL (09/08/2025 1:54 PM CDT) [facility] GLUCOSE 83 65 - 139 mg/dL [facility] Comment: Non-fasting reference interval BUN 12 7 - 25 mg/dL [facility] CREATININE 0.63 0.50 - 0.97 mg/dL [facility] GFR 116 > OR = 60 mL/min/1. 73m2 [facility] BUN/CREAT RATIO SEE NOTE: 6 - 22 (calc) [facility] Comment: Not Reported: BUN and Creatinine are within reference range. SODIUM 139 135 - 146 mmol/L [facility] POTASSIUM 3.8 3.5 - 5.3 mmol/L [facility] CHLORIDE 104 98 - 110 mmol/L [facility] CO2 27 20 - 32 mmol/L [facility] CALCIUM 9.5 8.6 - 10.2 mg/dL [facility] TOTAL PROTEIN 7.2 6.1 - 8.1 g/dL [facility] ALBUMIN 4.8 3.6 - 5.1 g/dL [facility] GLOBULIN 2.4 1.9 - 3.7 g/dL (calc) [facility] ALBUMIN/GLOBULIN RATIO 2.0 1.0 - 2.5 (calc) [facility] BILIRUBIN TOTAL 0.6 0.2 - 1.2 mg/dL [facility] ALKALINE PHOSPHATASE 52 31 - 125 U/L [facility] AST 12 10 - 30 U/L [facility] ALT 9 6 - 29 U/L [facility] Comment: Test Performed at: [facility] [place] [address] Junior Ewing MD Blood 09/08/2025 1:54 PM CDT 09/08/2025 1:55 PM CDT Gertrudis Bentley MD CHEMISTRY ORDERABLES Fi nal Result [facility] [phone] [facility] [address] [place] [address] * CERV/VAG CYTO AGE BASED SCREEN PAP (08/28/2025 1:08 PM CDT) COMMENT (PAP): [facility] Comment: This order for age-based cervical cancer and STI screening follows ACOG guidelines(PB 168, 140, HCH805). See individual assays for performing site location. CLINICAL INFORMATION [facility] Comment:None given LAST MENSTRUAL PERIOD [facility] Comment:NONE GIVEN PREV PAP: [facility] Comment:NONE GIVEN PREV BX: [facility] Comment:NONE GIVEN SOURCE [facility] Comment:Endocervix ADEQUACY: [facility] Comment: Satisfactory for evaluation. Endocervical/transformation zone component present. Age and/or menstrual status not provided PAP INTERP [facility] Comment: Cytology Results: Negative for intraepithelial lesion or malignancy. COMMENT (PAP TEST) Q uest [facility] Comment: This Pap test has been evaluated with the ThinPrep(R) Imaging System. PROGRAM PROJECT ANALYST: Cinthya larose [facility] Comment: MMD, CT(ASCP) CT Screening Location: [place] [address] [place] [address] CLIA: [id number] Slide preparation performed at: [facility], [facility] [place], [address] CLIA: [id number] EXPLANATORY NOTE Que [facility] Comment: EXPLANATORY NOTE: The Pap is a screening test for cervical cancer. It is not a diagnostic test and is subject to false negative and false positive results. It is most reliable when a satisfactory sample, regularly obtained, is submitted with relevant clinical findings and history, and when the Pap result is evaluated along with historic and current clinical information. HPV E6/E7 Not Detected Not Detected [facility] Comment: Methodology: Gun Examiner-Mediated Amplification This assay detects E6/E7 viral messenger RNA (mRNA) from 14 high-risk HPV types (16,18,31,33,35,39,45,51,52,56,58,59,66,68). Cervical sources are required for HPV testing. If a vaginal source from a patient who has had a total hysterectomy with removal of cervix was submitted, please contact the testing laboratory for alternative testing options. For additional information, please refer to http://education.The Currency Cloud/faq/PNE987n9 (This link if provided for information/ educational purposes only.) Test Performed at: [address] [address] Servando DENIS Genital SWAB OF ENDOCERVIX / Unknown 08/28/2025 1:08 PM CDT 08/31/2025 4:06 AM CDT Gertrudis Bentley MD PATHOLOGY/CYTOLOGY CYNTHIA LUO Final Result [facility] [phone] [address] * HEMOGLOBIN A1C (10/31/2024 2:41 PM MMD UNIT TEACHER) HEMOGLOBIN A1C 5.1 <5.7 % of total Hgb [facility] Comment: For the purpose of screening for the presence of diabetes: <5.7% Consistent with the absence of diabetes 5.7-6.4% Consistent with increased risk for diabetes (prediabetes) > or =6.5% Consistent with diabetes This assay result is consistent with a decreased risk of diabetes. Currently, no consensus exists regarding use of hemoglobin A1c for diagnosis of diabetes in children. According to [place] Diabetes Association (ADA) guidelines, hemoglobin A1c <7.0% represents optimal control in non- diabetic patients. Different metrics may apply to specific patient populations. Standards of Medical Care in Diabetes(ADA). ESTIMATED AVERAGE GLUCOSE (MG/DL) 100 mg/dL [facility] ESTIMATED AVERAGE GLUCOSE (MMOL/L) 5.5 mmol/L [facility] Comment: Test Performed at: [facility] [place] [address] [place] [address] Junior Ewing 10/31/2024 2:41 PM MMD UNIT TEACHER 10/31/2024 2:43 PM MMD UNIT TEACHER Yesy Robison NP CHEMISTRY ORDERABLES Final R esult [facility] [phone] [facility] [place] [address] [place] [address] from Last 3 Months or Most Recently Relevant to Health Maintenance Insurance BCBS BLUE ACCESS/TRUE BLUE PPO RX [employer] RX Member Subscriber Plan / Payer (Ef fective 2023-Present) Name:Adele Narayan Relation to Subscriber:Self Name:Adele Narayan Subscriber ID:Not on file Payer ID:Not on file Group ID:[id number] Type:RX Commercial Address: [address] Advance Directives For more information, please contact: [phone] * Full Code (Latest Code Status on File) Date Activated Date Inactivated Comments 02/28/2023 12:46 AM 03/01/2023 12:42 PM * Full Code Date Activated Date Inactivated Comments 02/27/2023 12:02 PM 02/28/2023 12:46 AM * Full Code Date Activated Date Inactivated Comments 01/27/2021 2:50 PM 01/29/2021 1:58 PM * Full Code Date Activated Date Inactivated Comments 01/18/2021 9:21 PM 01/19/2021 1:39 AM
--- OUTSIDE RECORDS SUMMARY | 2025-11-23 09:36 | XMS_ITS | Encounter Summary ---
Author Organization [facility] Address [address] Jean: [place] [address] Care Team Providers Care Accounts Supervisor Name Role Phone Mak Donald MD Primary Care Provider Encounter Details Date Type Department Care Team (Late st Contact Info) Description 11/12/1995 Outpatient Historical Sharon Hess MD [address] [facility] [address] [place] [address] Social History Tobacco Use Types Packs/Day Years Used Date Smoking Tobacco: Never Assessed Comments Unknown Sex and Gender Information Value Date Recorded Sex Assigned at Not on file Legal Sex Female 3:48 AM PRECISION AGRONOMIST Gender Identity Not on file Sexual Orientation Not on file documented as of this encounter Plan of Treatment Upcoming Encounters Date Type Department Care Team (Late st Contact Info) Description 12/10/2025 9:45 AM PRECISION AGRONOMIST Appointment [facility] Maternal and Ground Floor S [facility] [address] [place] [address] Gertrudis Bentley MD [address] [facility] [address] [place] [address] documented as of this encounter Visit Diagnoses Not on filedocumented in this encounter Care Teams Accounts Supervisor Relationship Specialty Start Date End Date Mak Donald MD [address] [place] [address] PCP - General 10/28/08 08/31/19 documented as of this encounter
--- OUTSIDE RECORDS SUMMARY | 2025-11-23 09:36 | XMS_ITS | Encounter Summary ---
Author Organization [facility] Address [address] [place] [address] Care Team Providers Care Box Strapper Name Role Phone Mak Donald MD Primary Care Provider Encounter Details Date Type Department Care Team (Late Contact Info) Description 07/13/1999 Outpatient Historical [facility] Pediatrics - Medical [place] [address] [address] Pedro Steven MD NO ADDRESS ON FILE Social History Tobacco Use Types Packs/Day Years Used Date Smoking Tobacco: Never Assessed Comments Unknown Sex and Gender Information Value Date Recorded Sex Assigned at Not on file Legal Sex Female 3:48 AM GROUND OPERATIONS SUPERINTENDENT Gender Identity Not on file Sexual Orientation Not on file documented as of this encounter Plan of Treatment Upcoming Encounters Date Type Department Care Team (Late Contact Info) Description 12/10/2025 9:45 AM GROUND OPERATIONS SUPERINTENDENT Appointment [facility] Maternal and Ground Floor [address] [place] [address] [place] [address] Gertrudis Bentley MD [address] [place] [address] documented as of this encounter Visit Diagnoses Not on filedocumented in this encounter Care Teams Box Strapper Relationship Specialty Start Date End Date Mak Donald MD [address] [place] [address] PCP - General 10/28/08 08/31/19 documented as of this encounter
--- OUTSIDE RECORDS SUMMARY | 2025-11-23 09:36 | XMS_ITS | Encounter Summary ---
Author Organization [facility] Address [address] [place] [address] Care Team Providers Care Coke Inspector Name Role Phone Mak Donald MD Primary Care Provider Encounter Details Date Type Department Care Team (Late Contact Info) Description 07/12/2004 Outpatient [facility] Pediatrics - Medical [place] [address] [address] Pedro Steven MD NO ADDRESS ON FILE Social History Tobacco Use Types Packs/Day Years Used Date Smoking Tobacco: Never Assessed Comments Unknown Sex and Gender Information Value Date Recorded Sex Assigned at Not on file Legal Sex Female 3:48 AM MUSIC STORE MANAGER Gender Identity Not on file Sexual Orientation Not on file documented as of this encounter Plan of Treatment Upcoming Encounters Date Type Department Care Team (Late Contact Info) Description 12/10/2025 9:45 AM MUSIC STORE MANAGER Appointment [facility] Maternal and Ground Floor [address] [place] [address] [place] [address] Gertrudis Bentley MD [address] [place] [address] documented as of this encounter Visit Diagnoses Not on filedocumented in this encounter Care Teams Coke Inspector Relationship Specialty Start Date End Date Mak Donald MD [address] [place] [address] PCP - General 10/28/08 08/31/19 documented as of this encounter
--- OUTSIDE RECORDS SUMMARY | 2025-11-23 09:36 | XMS_ITS | Encounter Summary ---
Author Organization [facility] Address [address] [place] [address] Care Team Providers Care Biofuels Processing Technician Name Role Phone Mak Donald MD Primary Care Provider Encounter Details Date Type Department Care Team (Latest Contact Info) Description 11/16/2006 Outpatient Historical [facility] Pediatrics - Medical [place] [address] [facility] [address] [address] Pedro Steven MD NO ADDRESS ON FILE Rash and Other Nonspecific Skin Eruption (Primary Dx) Social History Tobacco Use Types Packs/Day Years Used Date Smoking Tobacco: Never Assessed Comments Unknown Sex and Gender Information Value Date Recorded Sex Assigned at Not on file Legal Sex Female 3:48 AM LEAD COOK Gender Identity Not on file Sexual Orientation Not on file documented as of this encounter Plan of Treatment Upcoming Encounters Date Type Department Care Team (Late st Contact Info) Description 12/10/2025 9:45 AM LEAD COOK Appointment [facility] Maternal and Ground Floor [address] [place] [address] [place] [address] Gertrudis Bentley MD [address] [place] [address] documented as of this encounter Visit Diagnoses Diagnosis Rash and other nonspecific skin eruption- Primary documented in this encounter Care Teams Biofuels Processing Technician Relationship Specialty Start Date End Date Mak Donald MD [address] [place] [id number] PCP - General 10/28/08 08/31/19 documented as of this encounter
--- OUTSIDE RECORDS SUMMARY | 2025-11-23 09:36 | XMS_ITS | Encounter Summary ---
Author Organization [facility] Address [address] [place] [address] Care Team Providers Care Lpn Per Diem Name Role Phone Mak Donald MD Primary Care Provider Encounter Details Date Type Department Care Team (Late Contact Info) Description 06/03/2002 Outpatient Historical [facility] Pediatrics - Medical [place] [address] [address] Pedro Steven MD NO ADDRESS ON FILE Social History Tobacco Use Types Packs/Day Years Used Date Smoking Tobacco: Never Assessed Comments Unknown Sex and Gender Information Value Date Recorded Sex Assigned at Not on file Legal Sex Female 3:48 AM FINANCE OFFICER Gender Identity Not on file Sexual Orientation Not on file documented as of this encounter Plan of Treatment Upcoming Encounters Date Type Department Care Team (Late Contact Info) Description 12/10/2025 9:45 AM FINANCE OFFICER Appointment [facility] Maternal and Ground Floor [address] [place] [address] [place] [address] Gertrudis Bentley MD [address] [place] [address] documented as of this encounter Visit Diagnoses Not on filedocumented in this encounter Care Teams Lpn Per Diem Relationship Specialty Start Date End Date Mak Donald MD [address] [place] [address] PCP - General 10/28/08 08/31/19 documented as of this encounter
--- OUTSIDE RECORDS SUMMARY | 2025-11-23 09:36 | XMS_ITS | Encounter Summary ---
Author Organization [facility] Address [address] [place] [address] Care Team Providers Care Trailhead Maintenance Worker Name Role Phone Mak Donald MD Primary Care Provider Encounter Details Date Type Department Care Team (Late st Contact Info) Description 01/02/2000 Emergency [facility] Harley Shanks MD Er, Authorized P NO ADDRESS ON FILE Closed dislocation of patella (Primary Dx) Social History Tobacco Use Types Packs/Day Years Used Date Smoking Tobacco: Never Assessed Comments Unknown Sex and Gender Information Value Date Recorded Sex Assigned at Not on file Legal Sex Female 3:48 AM PUBLISHING SYSTEMS ANALYST Gender Identity Not on file Sexual Orientation Not on file documented as of this encounter Plan of Treatment Upcoming Encounters Date Type Department Care Team (Late st Contact Info) Description 12/10/2025 9:45 AM PUBLISHING SYSTEMS ANALYST Appointment [facility] Maternal and Ground Floor [address] [employer] [place] [address] Gertrudis Bentley MD [address] [place] [address] documented as of this encounter Visit Diagnoses Diagnosis Closed dislocation of patella- Primary documented in this encounter Care Teams Trailhead Maintenance Worker Relationship Specialty Start Date End Date Mak Donald MD [address] [address] PCP - General 10/28/08 08/31/19 documented as of this encounter
--- OUTSIDE RECORDS SUMMARY | 2025-11-23 09:36 | XMS_ITS | Encounter Summary ---
Author Organization [facility] Address [address] [place] [address] Care Team Providers Care Tube Cutter Operator Name Role Phone Mak Donald MD Primary Care Provider [phone] Encounter Details Date Type Department Care Team (Late Contact Info) Description 05/06/2001 Outpatient Historical [facility] Pediatrics - Medical [place] [address] [address] Pedro Steven MD NO ADDRESS ON FILE Social History Tobacco Use Types Packs/Day Years Used Date Smoking Tobacco: Never Assessed Comments Unknown Sex and Gender Information Value Date Recorded Sex Assigned at Not on file Legal Sex Female 3:48 AM COMIC BOOK ARTIST Gender Identity Not on file Sexual Orientation Not on file documented as of this encounter Plan of Treatment Upcoming Encounters Date Type Department Care Team (Late Contact Info) Description 12/10/2025 9:45 AM COMIC BOOK ARTIST Appointment [facility] Maternal and Ground Floor [address] [address] [place] [address] Gertrudis Bentley MD [address] [place] [address] documented as of this encounter Visit Diagnoses Not on filedocumented in this encounter Care Teams Tube Cutter Operator Relationship Specialty Start Date End Date Mak Donald MD [address] [place] [phone] PCP - General 10/28/08 08/31/19 documented as of this encounter
--- OUTSIDE RECORDS SUMMARY | 2025-11-23 09:36 | XMS_ITS | Encounter Summary ---
Author Organization [facility] Address [address] [place] [address] Care Team Providers Care Health Therapist Name Role Phone Mak Donald MD Primary Care Provider Encounter Details Date Type Department Care Team (Late st Contact Info) Description 11/29/1998 Outpatient Historical [facility] Rakan Villa MD [address] [place] [address] Urinary frequency (Primary Dx) Social History Tobacco Use Types Packs/Day Years Used Date Smoking Tobacco: Never Assessed Comments Unknown Sex and Gender Information Value Date Recorded Sex Assigned at Not on file Legal Sex Female 3:48 AM COMMERCIAL REAL ESTATE BROKER Gender Identity Not on file Sexual Orientation Not on file documented as of this encounter Plan of Treatment Upcoming Encounters Date Type Department Care Team (Late st Contact Info) Description 12/10/2025 9:45 AM COMMERCIAL REAL ESTATE BROKER Appointment [facility] Maternal and Ground Floor [address] [place] [address] Gertrudis Bentley MD [address] [place] [address] documented as of this encounter Visit Diagnoses Diagnosis Urinary frequency- Primary documented in this encounter Care Teams Health Therapist Relationship Specialty Start Date End Date Mak Donald MD [address] [place] [address] PCP - General 10/28/08 08/31/19 documented as of this encounter
--- OUTSIDE RECORDS SUMMARY | 2025-11-23 09:36 | XMS_ITS | Encounter Summary ---
Author Organization [facility] Address [address] [place] [address] Care Team Providers Care Websphere Commerce Consultant Name Role Phone Mak Donald MD Primary Care Provider [phone] Encounter Details Date Type Department Care Team (Late Contact Info) Description 06/05/[address] [facility] [place] [facility] Pediatrics - Medical [place] [address] [address] Pedro Steven MD NO ADDRESS ON FILE Social History Tobacco Use Types Packs/Day Years Used Date Smoking Tobacco: Never Assessed Comments Unknown Sex and Gender Information Value Date Recorded Sex Assigned at Not on file Legal Sex Female 3:48 AM CLASSIFIED AD CLERK Gender Identity Not on file Sexual Orientation Not on file documented as of this encounter Plan of Treatment Upcoming Encounters Date Type Department Care Team (Late Contact Info) Description 12/10/2025 9:45 AM CLASSIFIED AD CLERK Appointment [facility] Maternal and Ground Floor [address] [address] [place] [address] Gertrudis Bentley MD [address] [place] [address] documented as of this encounter Visit Diagnoses Not on filedocumented in this encounter Care Teams Websphere Commerce Consultant Relationship Specialty Start Date End Date Mak Donald MD [address] [place] [address] PCP - General 10/28/08 08/31/19 documented as of this encounter
--- OUTSIDE RECORDS SUMMARY | 2025-11-23 09:36 | XMS_ITS | Encounter Summary ---
Author Organization [facility] Address [address] [place] [address] Care Team Providers Care Inspector Rag Sorting Name Role Phone Mak Donald MD Primary Care Provider Encounter Details Date Type Department Care Team (Latest Contact Info) Description 05/07/2006 Outpatient Historical [facility] Pedro Barney MD NO ADDRESS ON FILE Diarrhea (Primary Dx) Social History Tobacco Use Types Packs/Day Years Used Date Smoking Tobacco: Never Assessed Comments Unknown Sex and Gender Information Value Date Recorded Sex Assigned at Not on file Legal Sex Female 3:48 AM AQUATICS INSTRUCTOR Gender Identity Not on file Sexual Orientation Not on file documented as of this encounter Plan of Treatment Upcoming Encounters Date Type Department Care Team (Late st Contact Info) Description 12/10/2025 9:45 AM AQUATICS INSTRUCTOR Appointment [facility] Maternal and Ground Floor [address] [employer] [address] [place] [address] Gertrudis Bentley MD [address] [place] [address] documented as of this encounter Procedures Procedure Name Priority Date/Time Associated Diagnosis Comments CBC WITH DIFFERENTIAL Routine 05/08/2006 3:59 PM CDT CBC WITH DIFFERENTIAL Routine 05/08/2006 3:59 PM CDT C-REACTIVE PROTEIN Routine 05/08/2006 3: 59 PM CDT COMPREHENSIVE METABOLIC PANEL Routine 05/08/2006 3:59 PM CDT documented in this encounter Results * CBC WITH DIFFERENTIAL (05/08/2006 3:59 PM CDT) NEUTROPHILS 62 45 - 70 % INTERFAC E SYSTEM LYMPHOCYTES 31 16 - 45 % INTERFAC E SYSTEM MONOCYTES 5 3 - 13 % INTERFACE SYSTEM EOSINOPHILS 2 0 - 7 % INTERFAC E SYSTEM BASOPHILS 0 0 - 2 % INTERFACE SYSTEM NEUTROPHIL ABSOLUTE 4.97 1.90 - 7.00 K/uL INTERFACE SYSTEM LYMPHOCYTE ABSOLUTE 2.51 0.70 - 4.50 K/uL INTERFACE SYSTEM MONOCYTE ABSOLUTE 0.43 0.10 - 1.30 K/uL INTERFACE SYSTEM EOSINOPHIL ABSOLUTE 0.12 0.00 - 0.70 K/uL INTERFACE SYSTEM BASOPHILS ABSOLUTE 0.03 0.00 - 0.20 K/uL INTERFACE SYSTEM 05/08/2006 3:59 PM CDT us Pedro Steven MD HEMATOLOGY ORDERABLES Final Res ult INTERFACE SYSTEM Refer to clinic/hospital department * (ABNORMAL) CBC WITH DIFFERENTIAL (05/08/2006 3:59 PM CDT) WBC 8.1 4.0 - 9.8 K/uL INTERFACE SYSTEM RBC 4.65 3.90 - 4.90 M/uL INTERFACE SYSTEM HEMOGLOBIN 14.1 11.8 - 14.8 g/dL INTERFACE SYSTEM HEMATOCRIT 38.8 35.5 - 44.0 % INTERFACE SYSTEM MCV 83.4 82.0 - 99.0 fL INTERFACE SYSTEM MCH 30.3 27.2 - 32.6 pg INTERFACE SYSTEM MCHC 36.3(H) 31.5 - 35.5 % INTERFACE SYSTEM RDW 12.2 11.5 - 14.5 % INTERFACE SYSTEM RDW-STDEV 36.8(L) 37.1 - 48.7 fL INTERFACE SYSTEM PLATELETS 348 140 - 350 K/uL INTERFACE SYSTEM MPV 9.4 9.3 - 12.4 fL INTERFACE SYSTEM 05/08/2006 3:59 PM CDT us Pedro Setven MD HEMATOLOGY ORDERABLES Final Res ult Performing Organization Address [facility] Phone Number INTERFACE SYSTEM Refer to clinic/hospital department * C-REACTIVE PROTEIN (05/08/2006 3:59 PM CDT) CRP <0.5 0.0 - 0.8 mg/dL INTERFACE SYSTEM 05/08/2006 3:59 PM CDT us Pedro Steven MD CHEMISTRY ORDERABLES Final Resu lt Performing Organization Address [facility] Phone Number INTERFACE SYSTEM Refer to clinic/hospital department * (ABNORMAL) COMPREHENSIVE METABOLIC PANEL (05/08/2006 3:59 PM CDT) GLUCOSE 90 65 - 99 mg/dL INTERFACE SYSTEM Comment:Note: Effective April 10, 2006, reference range now reflects a fasting st ate. CREATININE 0.9 0.4 - 1.2 mg/dL INTERFACE SYSTEM CALCIUM 8.9 8.6 - 10.2 mg/dL INTERFACE SYSTEM ALKALINE PHOSPHATASE 57 35 - 104 U/L INTERFACE SYSTEM AST 15 12 - 32 U/L INTERFACE SYSTEM ALT 7 0 - 31 U/L INTERFACE SYSTEM TOTAL PROTEIN 7.5 6.3 - 8.6 g/dL INTERFACE SYSTEM ALBUMIN 5.0(H) 3.4 - 4.8 g/dL INTERFACE SYSTEM BILIRUBIN TOTAL 0.5 0.2 - 1.0 mg/dL INTERFACE SYSTEM BUN 8 6 - 20 mg/dL INTERFACE SYSTEM CO2 27 22 - 30 mmol/L INTERFACE SYSTEM SODIUM 141 135 - 145 mmol/L INTERFACE SYSTEM POTASSIUM 3.3(L) 3.5 - 4.9 mmol/L INTERFACE SYSTEM CHLORIDE 104 96 - 108 mmol/L INTERFACE SYSTEM 05/08/2006 3:59 PM CDT us Pedro Steven MD CHEMISTRY ORDERABLES Final Resu lt Performing Organization Address [facility] Phone Number INTERFACE SYSTEM Refer to clinic/hospital department documented in this encounter Visit Diagnoses Diagnosis Diarrhea- Primary documented in this encounter Care Teams Inspector Rag Sorting Relationship Specialty Start Date End Date Mak Donald MD [address] [place] [id number] PCP - General 10/28/08 08/31/19 documented as of this encounter
--- OUTSIDE RECORDS SUMMARY | 2025-11-23 09:36 | XMS_ITS | Encounter Summary ---
Author Organization [facility] Address [address] [place] [address] Care Team Providers Care Plastic Panel Installer Name Role Phone Mak Donald MD Primary Care Provider Encounter Details Date Type Department Care Team (Late Contact Info) Description 05/26/2003 Outpatient Historical [facility] Pediatrics - Medical [place] [address] [address] Pedro Steven MD NO ADDRESS ON FILE Social History Tobacco Use Types Packs/Day Years Used Date Smoking Tobacco: Never Assessed Comments Unknown Sex and Gender Information Value Date Recorded Sex Assigned at Not on file Legal Sex Female 3:48 AM FIELD PROPERTY LOSS SPECIALIST Gender Identity Not on file Sexual Orientation Not on file documented as of this encounter Plan of Treatment Upcoming Encounters Date Type Department Care Team (Late Contact Info) Description 12/10/2025 9:45 AM FIELD PROPERTY LOSS SPECIALIST Appointment [facility] Maternal and Ground Floor [address] [place] [address] [place] [address] Gertrudis Bentley MD [address] [place] [address] documented as of this encounter Visit Diagnoses Not on filedocumented in this encounter Care Teams Plastic Panel Installer Relationship Specialty Start Date End Date Mak Donald MD [address] [place] [address] PCP - General 10/28/08 08/31/19 documented as of this encounter
--- OUTSIDE RECORDS SUMMARY | 2025-11-23 09:36 | XMS_ITS | Encounter Summary ---
Author Organization [facility] Address [address] [place] [address] Care Team Providers Care Shipping Coordinator Name Role Phone Mak Donald MD Primary Care Provider Encounter Details Date Type Department Care Team (Late Contact Info) Description 05/09/2004 Outpatient [facility] Pediatrics - Medical [place] [address] [address] Pedro Steven MD NO ADDRESS ON FILE Social History Tobacco Use Types Packs/Day Years Used Date Smoking Tobacco: Never Assessed Comments Unknown Sex and Gender Information Value Date Recorded Sex Assigned at Not on file Legal Sex Female 3:48 AM CHIMNEY SUPERVISOR BRICK Gender Identity Not on file Sexual Orientation Not on file documented as of this encounter Plan of Treatment Upcoming Encounters Date Type Department Care Team (Late Contact Info) Description 12/10/2025 9:45 AM CHIMNEY SUPERVISOR BRICK Appointment [facility] Maternal and Ground Floor [address] [place] [address] [place] [address] Gertrudis Bentley MD [address] [place] [address] documented as of this encounter Visit Diagnoses Not on filedocumented in this encounter Care Teams Shipping Coordinator Relationship Specialty Start Date End Date Mak Donald MD [address] [place] [phone] PCP - General 10/28/08 08/31/19 documented as of this encounter
--- OUTSIDE RECORDS SUMMARY | 2025-11-23 09:36 | XMS_ITS | Patient Health Record ---
Author Organization [facility] [employer] Address [address] [facility] [address] [place] [address] Care Team Providers Care Compliance Consultant Name Role Phone Eugenio Johnson MD Primary Care Provider Unavaila Shahla Titus Unavailable [phone] Allergies No Known Allergies Reason For Referral No Information Medications Medication SIG (Take, Route, Frequency, Duration) Notes Start Date End Date Status busPIRone HCl 5 MG Tablet 1 tablet Orall y 3 times a day Active Fluticasone Propionate 50 MCG/ACT Suspension 1 spray in each nostril Nasally Twice a day; Duration: 30 day(s) Active hydrOXYzine HCl 10 MG Tablet 1-2 tablet as needed Orally Once a day; Duration: 30 days 08/06/2025 Not-Taking Tranexamic Acid 650 MG Tablet 1 tablet Orally daily; Duration: 30 days Active Azelastine HCl 137 MCG/SPRAY Solution 2 puffs (1 spray in each nostril) Nasally Twice a day; Duration: 30 day(s) Active Social History Tobacco Use: Social History Observation Description Date Details (start date - stop date) Never Smoker NA - NA Sex Assigned At : Social History Observation Description Sex Assigned At Female Social History Miscellaneous: Social Info Question Answer Notes Safety issues: Are there any firearms in the house? Ye s Social History Social Info Question Answer Notes Household: Marital Status: Number of Adults in household: 2 Number of Children in Household: 2 Level of Education: Finished College Drug/Alcohol: Social Info Question Answer Notes Drugs Have you used drugs other than those for medical reasons in the past 12 months? No AUDIT-C (Standard) Points 2 Interpretation Positive Did you have a drink contain ing alcohol in the past year? Yes How often did you have six or more drinks on one occasion in the past year? Never (0 point) How many drinks did you have on a typical day when you were drinking in the past year? 1 or 2 drinks (0 point) How often did you have a drink containing alcohol in the past year? 2 to 4 times a month (2 points) Caffeine Intake: 2-3 cups per day Tobacco Use: Social Info Question Answer Notes Tobacco Control (Standard) Tobacco use: Nonsmoker Additional Details Category Social Info Options Details Miscellaneous: Occupation: [employer] Drug/Alcohol: Do you smoke marijuana? No Problems Problem Type SNOMED Code ICD Code Onset Dates Problem Status W/U Status Risk Notes Problem Severe recurrent major depression without psychotic features (58409660) Major depressive disorder, recurrent severe without psychotic features (F33.2) Active confirmed Problem Generalized anxiety disorder (40884853) SOBIA (generalized anxiety disorder) (F41.1) Active confirmed Problem Panic disorder (044989555) Panic attacks (F41.0) Active confirmed Vital Signs Heart Rate 78 /min 09/01/2025 Height-cm 170.18 cm 09/01/2025 Blood pressure diastolic 82 mm Hg 09/01/2025 Weight-kg 90.72 kg 09/01/2025 Height 67 in 09/01/2025 Blood pressure systolic 124 mm Hg 09/01/2025 Weight 200 lbs 09/01/2025 BMI 31.32 kg/m2 09/01/2025 Encounters Encounter Location Date Provider Diagnosis [facility] [employer] [facility] [address] [address] 08/06/2025 Shahla Forte SOBIA (generalized anxiety disorder) F41.1 and Panic attacks F41.0 [facility] [employer] [facility] [address] [facility] [address] [place] [address] 09/01/2025 Shahla Forte Major depressive disorder, recurrent severe without psychotic features F33.2 [facility] [employer] [facility] [address] [address] 09/01/2025 Shahla Forte [facility] [employer] [facility] [address] [facility] [address] [place] [address] 08/13/2025 Shahla Forte [facility] [employer] [facility] [address] [address] 08/13/2025 Shahla Forte [facility], [facility] [address] [facility] [address] [place] [address] 08/14/2025 Shahla Forte [facility] [address] [facility] [address] [place] [address] 08/27/2025 Shahla Forte [place] [address] [facility] [address] [place] [address] 08/28/2025 Shahla Forte Major depressive disorder, recurrent severe without psychotic features F33.2 [place] [address] [facility] [address] [place] [address] 08/28/2025 Shahla Forte [facility] [address] [facility] [address] [facility] [address] [place] [address] 09/16/2025 Shahla Forte [place] [address] [facility] [address] [facility] [address] [place] [address] 09/16/2025 Shahla Forte Assessments Encounter Date Diagnosis (ICD Code) Assessment Notes Treatment Notes Treatment Clinical Notes Section Notes 08/06/2025 SOBIA (generalized anxiety disorder) (ICD-10 - F41.1) SSRI/SNRI side effects discussed including but not limited to, gastric upset, nausea, vomiting, diarrhea and/or constipation, weight changes, sexual side effects including loss of libido, increased suicidal thoughts/behavior s in children and young adults, and serotonin syndrome. 08/06/2025 Panic attacks (ICD-10 - F41.0) 08/28/2025 Major depressive disorder, recurrent severe without psychotic features (ICD-10 - F33.2) I'm considering augmenting therapy with a new medication or starting/switchin g to a new medication List all the [facility] medications that you are considering for augmentation or starting/switchin g to Medication considered [id number] Escitalopram (Lexapro), [id number] Sertraline (Zoloft) and CYP2D5 Aripiprazole (Abilify) I'm considering a dosage adjustment to currently prescribed medication(s) duloxetine Have you considered non-genetic factors to make a preliminary drug selection, including a personalized medication decision based on the patient's diagnosis, the patient's other medical conditions, other medications the patient is taking, professional judgment, clinical science and basic science pertinent to the drug (e.g. mechanism of action, side effects), the patient's past medical history, and when pertinent, family history and the patient's preferences and values? YES Note: Many insurance providers require clinicians to consider non-genetic factors when ordering this test. GeneSight MTHFR __X____ Yes NO 09/01/2025 Major depressive disorder, recurrent severe without psychotic features (ICD-10 - F33.2) I'm considering augmenting therapy with a new medication or starting/switchin g to a new medication List all the [employer]ight medications that you are considering for augmentation or starting/switchin g to Medication considered [id number] Citalopram (Celexa), CYP2D6 Brexpiprazole (Rexulti ) and CYP2D6 Paroxetine (Paxil ) I'm considering a dosage adjustment to currently prescribed medication(s) N/A Have you considered non-genetic factors to make a preliminary drug selection, including a personalized medication decision based on the patient's diagnosis, the patient's other medical conditions, other medications the patient is taking, professional judgment, clinical science and basic science pertinent to the drug (e.g. mechanism of action, side effects), the patient's past medical history, and when pertinent, family history and the patient's preferences and values? YES Note: Many insurance providers require clinicians to consider non-genetic factors when ordering this test. GeneSight MTHFR ____x__ Yes NO 08/06/2025 Other Start sertraline 25mg daily for one week then 50mg daily for anxiety management Start hydroxyzine 10-20mg qd PRN for panic Patient educated on all medications including potential benefits, side effects, risks. Educated on proper dosing schedule and importance of compliance. Cont therapy -Assessment and treatment plan reviewed with patient. -Compliance with treatment plan importance discussed. -Discussed the risks/benefits of this medication -Discussed medication side effects. -Contact office if symptoms worsen. -Discussed that it can take up to 6-8 weeks to see full therapeutic effects of psychotropic medications. -Crisis prevention hotline [phone]. 09/01/2025 Other Continue off of medications for now -GeneSight completed today, await results prior to medication initiation Plan Of Treatment Pending Test Test Name Order Date Cytochrome P450 2D6 Genotyping 5 Cytochrome P450 2C9 Genotyping 5 Cytochrome P450 2C19 09/01/2025 Insurance Providers Payer Name Payer Address Payer Phone Subscriber Number Group Number Insured Name Patient Relationship to Insured Coverage Start Date Coverage End Date [employer] [address] [place] [address] [id number] Sylvain Adele Self - patient is the insured Medical (General) History Medical History History ICD Code abdominal aortic aneurysm: No atrial fibrillation: No chronic fatigue syndrome: No essential tremor: No hyperlipidemia: No hypertension: No Parkinson's disease: No restless leg syndrome: No stroke: No subdural hematoma: No type 1 diabetes mellitus: No type 2 diabetes mellitus: No vitamin B12 deficiency: No vitamin D deficiency: No Surgical History Surgery Date(Month/Year) apendectomy 08/2024
--- OUTSIDE RECORDS SUMMARY | 2025-11-23 09:36 | XMS_ITS | Encounter Summary ---
Author Organization [facility] Address [address] [place] [address] Care Team Providers Care Lehr Loader Name Role Phone Mak Donald MD Primary Care Provider Encounter Details Date Type Department Care Team (Late Contact Info) Description 05/07/2006 Outpatient [facility] - [facility] [place] [address] [address] Pedro Steven MD NO ADDRESS ON FILE Social History Tobacco Use Types Packs/Day Years Used Date Smoking Tobacco: Never Assessed Comments Unknown Sex and Gender Information Value Date Recorded Sex Assigned at Not on file Legal Sex Female 3:48 AM SUPERVISOR [employer] Gender Identity Not on file Sexual Orientation Not on file documented as of this encounter Plan of Treatment Upcoming Encounters Date Type Department Care Team (Late Contact Info) Description 12/10/2025 9:45 AM SUPER[employer]OR [employer] Appointment [facility] Maternal and Ground Floor [address] [place] [address] [address] [place] [address] Gertrudis Bentley MD [address] [place] [address] documented as of this encounter Visit Diagnoses Not on filedocumented in this encounter Care Teams Lehr Loader Relationship Specialty Start Date End Date Mak Donald MD [address] [place] [address] PCP - General 10/28/08 08/31/19 documented as of this encounter
--- OUTSIDE RECORDS SUMMARY | 2025-11-23 09:36 | XMS_ITS | Encounter Summary ---
Author Organization [facility] Address [address] Jean: [place] [address] Care Team Providers Care Break Off Worker Name Role Phone Mak Donald MD Primary Care Provider Encounter Details Date Type Department Care Team (Late st Contact Info) Description 01/05/1995 Outpatient Historical Sharon Hess MD [address] [facility] [address] [place] [address] Social History Tobacco Use Types Packs/Day Years Used Date Smoking Tobacco: Never Assessed Comments Unknown Sex and Gender Information Value Date Recorded Sex Assigned at Not on file Legal Sex Female 3:48 AM EMERGENCY TECHNICIAN Gender Identity Not on file Sexual Orientation Not on file documented as of this encounter Plan of Treatment Upcoming Encounters Date Type Department Care Team (Late st Contact Info) Description 12/10/2025 9:45 AM EMERGENCY TECHNICIAN Appointment [facility] Maternal and Ground Floor [address] [facility] [address] [place] [address] Gertrudis Bentley MD [address] [facility] [address] [place] [address] documented as of this encounter Visit Diagnoses Not on filedocumented in this encounter Care Teams Break Off Worker Relationship Specialty Start Date End Date Mak Donald MD [address] [place] [address] PCP - General 10/28/08 08/31/19 documented as of this encounter
== END 2025-11-23 09:19 | disposition home or self-care (01) ==
PROVIDERS: PCP Family Medicine; Visit Provider Physician Assistant
DX: R10.11 Right upper quadrant pain (principal); R10.13 Epigastric pain; R11.2 Nausea with vomiting, unspecified
CPT/HCPCS: 78227; A9537; J2805